=== PATIENT | male | born 1955 | race Two or more races ===

== ENCOUNTER 2021-02-16 13:40 | Emergency (ER) | payer OTHER ==
[~2021-02-16] VITALS: Ht 172.7 cm; Wt 84.4 kg
[2021-02-16] MEDS ORDERED: LEVOTHYROXINE25 MCG PO (14:07)
[2021-02-16] MEDS ORDERED: AMLODIPINE-OLM1 EACH PO (14:07)
[2021-02-16] MEDS ORDERED: HYDRODIURIL12.5 MG PO (14:07)
[2021-02-16] MEDS ORDERED: ZYLOPRIM100 M1 PO (14:07)
[2021-02-16] MEDS ORDERED: CHILDREN'S ASPI81 MG PO (14:08)
[2021-02-16] MEDS ORDERED: COZAAR100 MG PO (14:08)
[2021-02-16] MEDS ORDERED: KETO10TA2 PO (15:36)
[2021-02-16] MEDS ORDERED: NORFLEX100MG PO (15:36)
== END 2021-02-16 15:38 | disposition home or self-care (01) ==
LOC: ER 13:40
DX: S33.5XXA Sprain of ligaments of lumbar spine, initial encounter (principal); M54.59 Other low back pain; X50.9XXA Other and unspecified overexertion or strenuous movements or postures, initial encounter; Y93.89 Activity, other specified; Y92.89 Other specified places as the place of occurrence of the external cause; Y99.8 Other external cause status